=== PATIENT | male | born 1975 | race Caucasian/White ===

== ENCOUNTER 2016-09-28 05:37 | Observation (INO) | payer OTHER ==
[2016-09-28] MEDS ORDERED: Nitroglycerin 0.4 MG Tab.SL SL ONE ×2 (05:46→06:12)
[2016-09-28] MEDS ORDERED: Aspirin 81 MG Tab.Chew PO ONE (05:46)
[2016-09-28] MEDS ORDERED: Clopidogrel 75 MG Tab PO ONE (05:46)
[2016-09-28] MEDS ORDERED: Sodium Chloride 0.9% 10 ML Syringe FLUSH PRN (05:49)
--- NOTE | 2016-09-28 06:19 | EDM.PDOC ---
ED HISTORY OF PRESENT ILLNESS - General Chief Complaint: Chest Pain Stated Complaint: chest pain Time Seen by Provider: 09/28/16 06:07 Source of Information: Reports: Patient History Limitations: Reports: No limitations - History of Present Illness INITIAL COMMENTS - FREE TEXT/NARRATIVE: Patient drove self to ER after experiencing left lower rib margin pain and mild dizziness. Symptoms started around 5:30am. No heart disease history. Did have stress test around 6 years ago per patient after a different round of chest pain. Pain does not radiate. No SOB with pain, no change in pain with breathing or movement. No nausea or other GI complaints. Is lightheaded but head rotation does not trigger this or make it worse. Not diaphoretic. Denies fever. Had normal day yesterday except for random nose bleed from left nare. He says he sometimes has these during winter months. Had not had recent URI or cough. Family history unknown. Adopted as child. - Related Data Allergies/ADRs: Allergies Allergy/AdvReac Type Severity Reaction Status Date / Time No Known Allergies Allergy Verified 09/28/16 05:40 Home Meds: Home Meds . [No Known Home Meds] 09/28/16 [History] Past Medical History - Past Health History Medical/Surgical History: Denies Medical/Surgical History (denies any significant past medical history) Social & Family History - Family History Family Medical History: Unobtainable ED ROS GENERAL - Review of Systems Review Of Systems: ROS reveals no pertinent complaints other than HPI. ED EXAM, GENERAL - Physical Exam Exam: See Below Free Text/Narrative:: Unable to exacerbate/trigger pain with palpation of chest/abdomen Exam Limited By: No limitations General Appearance: alert, WD/WN, no apparent distress Eye Exam: bilateral eye: EOMI, PERRL Ears: normal external exam, normal canal, hearing grossly normal, normal TMs, other (impacted cerumen bilaterally, right greater than left) Nose: other (dried blood left nare. Otherwise unremarkable for swelling/ tenderness) Throat/Mouth: Normal inspection, Normal lips, Normal oropharynx, Normal voice, No airway compromise Head: atraumatic, normocephalic Neck: normal inspection, supple, non-tender, full range of motion. No: carotid bruit, lymphadenopathy (L), lymphadenopathy (R) Respiratory/Chest: no respiratory distress, lungs clear, normal breath sounds, no accessory muscle use, chest non-tender Cardiovascular: normal peripheral pulses, regular rate, rhythm, no edema, no JVD , no murmur Peripheral Pulses: 2+: radial (L), radial (R) GI/Abdominal: normal bowel sounds, soft, non tender, no organomegaly, no distention, no abnormal bruit (Male) Exam: Deferred Rectal (Males) Exam: Deferred Back Exam: normal inspection, full range of motion Extremities: normal inspection, normal range of motion, non-tender, no pedal edema, normal capillary refill Neurological: alert, CN II-XII intact, normal cognition, normal gait, normal reflexes, no motor/sensory deficits Psychiatric: normal affect, normal mood Skin Exam: Warm, Dry, Normal color, No rash EKG INTERPRETATION EKG Date: 09/28/16 Time: 05:37 Rhythm: other (Sinus Bradycardia) Rate (beats/min): 51 [place]: normal P-wave: present QRS: normal ST-T: normal QT: normal Comparison: NA - no prior EKG Course - Vital Signs Last Recorded V/S: Last Vital Signs Temp 36.8 C 09/28/16 05:37 Pulse 54 L 09/28/16 06:38 Resp 18 09/28/16 06:38 BP 117/75 09/28/16 06:38 Pulse Ox 100 09/28/16 06:38 - Orders/Labs/Meds Orders: Active Orders 24 hr Category Date Time Status Cardiac Monitoring [RC] . DIRECTED Care 09/28/16 05:49 Active EKG Documentation Completion [RC] ASDIRECTED Care 09/28/16 05:48 Active Oxygen Therapy, ED [RC] ASDIRECTED Care 09/28/16 05:40 Active Peripheral IV Care [RC] . DIRECTED Care 09/28/16 05:49 Active Chest 1V Frontal [CR] Stat Exams 09/28/16 05:48 Ordered GI Cocktail Med 09/28/16 06:50 Once 30 ml PO ONETIME ONE Sodium Chloride 0.9% [Saline Flush] Med 09/28/16 05:49 Active 10 ml FLUSH ASDIRECTED PRN Peripheral IV Insertion Adult [OM.PC] Routine Oth 09/28/16 05:49 Ordered EKG 12 Lead [EK] Routine Ther 09/28/16 05:48 Ordered Medication Orders Al Hydroxide/Mg Hydroxide (Gi Cocktail) 30 ml PO ONETIME ONE Stop: 09/28/16 06:51 Sodium Chloride (Saline Flush) 10 ml FLUSH ASDIRECTED PRN PRN Reason: Keep Vein Open Labs: Laboratory Tests 09/28/16 09/28/16 09/28/16 Range/Units 05:55 05:55 05:55 WBC 6.2 (4.0-10.2) K/uL RBC 4.78 (4.33-5.41) M/uL Hgb 14.5 (13.1-16.8) g/dL Hct 44.0 (39.0-49.0) % MCV 92.1 (84.0-98.0) fL MCH 30.3 (28.2-33.3) pg MCHC 33.0 (31.7-36.0) g/dL RDW 12.7 (11.2-14.1) % Plt Count 212 (150-350) K/uL Neut % (Auto) 56.8 (45.0-80.0) % Lymph % (Auto) 30.0 (10.0-50.0) % [place] % (Auto) 8.8 (2.0-14.0) % Eos % (Auto) 3.9 (0.0-5.0) % Baso % (Auto) 0.5 (0.0-2.0) % Neut # 3.51 (1.40-7.00) K/uL Lymph # 1.85 (0.50-3.50) K/uL [place] # 0.54 (0.00-1.00) K/uL Eos # 0.24 (0.00-0.50) K/uL Baso # 0.03 (0.00-0.20) K/uL PT 11.3 (9.8-11.7) SEC INR 1.1 APTT 27.5 (23.5-30.0) SEC D-Dimer, Quantitative (0-400) ng/mL Sodium 144 (136-145) mmol/L Potassium 4.3 (3.5-5.1) mmol/L Chloride 106 (98-107) mmol/L Carbon Dioxide 29.1 (21.0-32.0) mmol/L BUN 23 H (7-18) mg/dL Creatinine 1.13 (0.51-1.17) mg/dL Est Cr Clr Drug Dosing 100.74 mL/min Estimated GFR (MDRD) > 60 mL/min Glucose 117 H (74-106) mg/dL Calcium 8.1 L (8.5-10.1) mg/dL Total Bilirubin 0.5 (0.2-1.0) mg/dL AST 44 H (15-37) U/L ALT 29 (12-78) U/L Alkaline Phosphatase 67 (46-116) IU/L Creatine Kinase 545 H (26-308) U/L Creatine Kinase Index 1.1 (0.0-2.5) % CK-MB (CK-2) 6.00 H* (0.00-3.60) ng/mL Troponin I 0.003 (0.000-0.056) ng/mL Total Protein 7.0 (6.4-8.2) g/dL Albumin 3.7 (3.4-5.0) g/dL 09/28/16 Range/Units 05:55 WBC (4.0-10.2) K/uL RBC (4.33-5.41) M/uL Hgb (13.1-16.8) g/dL Hct (39.0-49.0) % MCV (84.0-98.0) fL MCH (28.2-33.3) pg MCHC (31.7-36.0) g/dL RDW (11.2-14.1) % Plt Count (150-350) K/uL Neut % (Auto) (45.0-80.0) % Lymph % (Auto) (10.0-50.0) % [place] % (Auto) (2.0-14.0) % Eos % (Auto) (0.0-5.0) % Baso % (Auto) (0.0-2.0) % Neut # (1.40-7.00) K/uL Lymph # (0.50-3.50) K/uL [place] # (0.00-1.00) K/uL Eos # (0.00-0.50) K/uL Baso # (0.00-0.20) K/uL PT (9.8-11.7) SEC INR APTT (23.5-30.0) SEC D-Dimer, Quantitative < 100 (0-400) ng/mL Sodium (136-145) mmol/L Potassium (3.5-5.1) mmol/L Chloride (98-107) mmol/L Carbon Dioxide (21.0-32.0) mmol/L BUN (7-18) mg/dL Creatinine (0.51-1.17) mg/dL Est Cr Clr Drug Dosing mL/min Estimated GFR (MDRD) mL/min Glucose (74-106) mg/dL Calcium (8.5-10.1) mg/dL Total Bilirubin (0.2-1.0) mg/dL AST (15-37) U/L ALT (12-78) U/L Alkaline Phosphatase (46-116) IU/L Creatine Kinase (26-308) U/L Creatine Kinase Index (0.0-2.5) % CK-MB (CK-2) (0.00-3.60) ng/mL Troponin I (0.000-0.056) ng/mL Total Protein (6.4-8.2) g/dL Albumin (3.4-5.0) g/dL Meds: Medications Generic Name Dose Route Start Last Admin Trade Name Freq PRN Reason Stop Dose Admin Al Hydroxide/Mg Hydroxide 30 ml 09/28/16 06:50 Gi Cocktail PO 09/28/16 06:51 ONETIME ONE Sodium Chloride 10 ml 09/28/16 05:49 Saline Flush FLUSH ASDIRECTED PRN Keep Vein Open Discontinued Medications Generic Name Dose Route Start Last Admin Trade Name Freq PRN Reason Stop Dose Admin Aspirin 324 mg 09/28/16 05:46 09/28/16 05:50 Aspirin PO 09/28/16 05:47 324 mg ONETIME ONE Administration Clopidogrel Bisulfate 300 mg 09/28/16 05:46 09/28/16 05:50 Plavix PO 09/28/16 05:47 300 mg ONETIME ONE Administration Nitroglycerin 0.4 mg 09/28/16 05:46 09/28/16 05:54 Nitrostat SL 09/28/16 05:47 0.4 mg ONETIME ONE Administration Nitroglycerin 0.4 mg 09/28/16 06:12 09/28/16 06:13 Nitrostat SL 09/28/16 06:13 0.4 mg ONETIME ONE Administration - Radiology Interpretation Free Text/Narrative:: Chest xray unremarkable, unchanged overall from last CXR - Re-Assessments/Exams Free Text/Narrative Re-Assessment/Exam: 09/28/16 06:46 Patient's pain improved from 7 to a 4. This was while he was in ER and receiving intermittent NTG. Uncertain if improvement due to the NTG. Troponin negative. No acute changes noted on EKG. CK and CKMB elevated but index normal. 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 Plan at this time is to admit for observation with redraw of Troponin/labs in 6 hours. GIven location of pain and presentation appears less likely to be cardiac in nature but cannot fully rule out possibility. Differential includes GI, as well as early enteritis symptoms. Departure - Departure Time of Disposition: 06:48 Disposition: Refer to Observation Condition: good Clinical Impression: Chest pain of uncertain etiology Referrals: Monique Bray PA [Primary Care Provider] - Forms: ED Department Discharge - Problem List & Annotations (1) Chest pain of uncertain etiology SNOMED Code(s): 11708625 Code(s): R07.89 - OTHER CHEST PAIN Status: Acute Priority: High Current Visit: Yes Onset Date: 09/28/16 - Problem List Review Problem List Initiated/Reviewed/Updated: Yes - My Orders Last 24 Hours: My Active Orders 09/28/16 05:40 Oxygen Therapy, ED [RC] ASDIRECTED 09/28/16 05:48 EKG Documentation Completion [RC] ASDIRECTED Chest 1V Frontal [CR] Stat EKG 12 Lead [EK] Routine 09/28/16 05:49 Cardiac Monitoring [RC] . DIRECTED Peripheral IV Care [RC] . DIRECTED Sodium Chloride 0.9% [Saline Flush] 10 ml FLUSH ASDIRECTED PRN Peripheral IV Insertion Adult [OM.PC] Routine 09/28/16 06:50 GI Cocktail 30 ml PO ONETIME ONE - Assessment/Plan Admission H&P: Please use this note as an admission H&P Last 24 Hours: My Active Orders 09/28/16 05:40 Oxygen Therapy, ED [RC] ASDIRECTED 09/28/16 05:48 EKG Documentation Completion [RC] ASDIRECTED Chest 1V Frontal [CR] Stat EKG 12 Lead [EK] Routine 09/28/16 05:49 Cardiac Monitoring [RC] . DIRECTED Peripheral IV Care [RC] . DIRECTED Sodium Chloride 0.9% [Saline Flush] 10 ml FLUSH ASDIRECTED PRN Peripheral IV Insertion Adult [OM.PC] Routine 09/28/16 06:50 GI Cocktail 30 ml PO ONETIME ONE Assessment:: Left lower anterior chest pain. Uncertain cause. Only other complaint is lightheaded sensation. Negative initial cardiac workup in ER. Patient does have lower heart rate in 50s. Do not feel at this time that discomfort is attributable to this rate. Patient does not know what his usual vital signs are. Can have staff call [facility] to check on what records are available pertaining to prior vital sign trends. 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 Serial Troponin checks. If these remain negative, patient should be discharged within 12-24 hours. GI cocktail also ordered. Patient discomfort down to a 2 at time of admission.
[2016-09-28 06:36] LABS: CHLORIDE,CL 106 mmol/L (98-107); SODIUM,NA 144 mmol/L (136-145)
[2016-09-28] MEDS ORDERED: GI Cocktail Oral Solution 30 ML PO ONE (06:50)
[2016-09-28] MEDS ORDERED: Nitroglycerin 0.4 MG Tab.SL SL PRN (07:14)
[2016-09-28 16:02] VITALS: BP 125/81
--- NOTE | 2016-09-28 17:13 | PCM.DCSUM1 ---
Discharge Summary - Hospital Course HPI Initial Comments: See emergency room note/admission H&P Brief History: See emergency room note/admission H&P - Discharge Data Discharge Date: 09/28/16 Discharge Disposition: Home, Self-Care 01 Condition: Good - Discharge Diagnosis/Problem(s) (1) Chest pain of uncertain etiology SNOMED Code(s): 84842269 ICD Code: R07.89 - OTHER CHEST PAIN Status: Acute Priority: High Current Visit: Yes Onset Date: 09/28/16 Problem Details: Patient insisted on admission and also at this time to be discharged today. 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 Various therapeutic options were discussed with the patient, who agrees to recommended Cardiolite stress test with his regular provider, Dunia Beavers [place] [facility] as per discharge instructions. Work excuse provided with patient to maintain a 50% maximum exercise restriction until he is released by his regular provider. Despite evidence of bradycardia no direct evidence of inferolateral ischemia by serial EKGs, including immediately prior to discharge. Extensive precautions were given to the patient, who is in agreement with the treatment plan. Cardiac risk factors include male sex and hyperlipidemia with complete lipid panel still pending secondary to shortage of reagents. He is adopted and is not aware of his family history. Chest pain protocol was followed on admission with no beta blockers given. No further aspirin, etc. for now. Note negative H. pylori this afternoon. (2) Elevated CPK SNOMED Code(s): 097978693 ICD Code: R74.8 - ABNORMAL LEVELS OF OTHER SERUM ENZYMES Status: Acute Priority: Medium Current Visit: Yes Onset Date: 09/28/16 Problem Details: As above. Observe for now (3) Bradycardia SNOMED Code(s): 74802716 ICD Code: R00.1 - BRADYCARDIA, UNSPECIFIED Status: Acute Priority: Medium Current Visit: Yes Problem Details: As above. Observe for now (4) Hyperlipidemia SNOMED Code(s): 22356329 ICD Code: E78.5 - HYPERLIPIDEMIA, UNSPECIFIED Status: Chronic Priority: Medium Current Visit: Yes Problem Details: As above. Observe for now. Consider therapy with caution in light of his baseline CPK elevation Qualifiers: Hyperlipidemia type: unspecified Qualified Code(s): E78.5 - Hyperlipidemia , unspecified - Patient Summary/Data Operative Procedure(s) Performed: None Complications: None Consults: None Labs Pending at D/C: Lipid panel Recommended Follow-up Testing/Procedures: As per discharge instructions Planned Operative Procedure(s) after DC: None Hospital Course: Patient was admitted to observation status for nonspecific left chest pain with negative workup for acute TX as above. No recurrence of his chest pain during hospital course with further workup as per above. Patient did tolerate diet prior to discharge - Patient Instructions Diet: Heart Healthy Diet Activity: No Strenuous Activities (50% maximum exercise restriction until your cardiac status has been determined and you are released by your regular provider ) Driving: May Drive Today Showering/Bathing: May Shower Notify Provider of: Increased Pain, Nausea and/or Vomiting Other/Special Instructions: 1. Followup in this facility NA[facility] for Cardiolite stress test with Dunia Brown MD at [facility] in [place], with this facility to call you back later or specific instructions and time. 2. Otherwise followup with your regular provider within the next 10-14 days for reevaluation and recommended repeat CBC, comprehensive metabolic panel, CK, CK-MB, CK index, and troponin I. 3. Discuss final results of today's lipid panel at the above followup - Discharge Plan Home Medications: Home Meds . [No Known Home Meds] 09/28/16 [History] Patient Handouts: Nonspecific Chest Pain, [id number], Fat and Cholesterol Restricted Diet, [id number], CK-MB Forms: ED Department Discharge, Return to Work/School Form Referrals: Monique Bray PA [Primary Care Provider] - - Discharge Summary/Plan Comment DC Time >30 min.: Yes ( Coordination of care) Discharge Summary/Plan Comment: As above - General Info Date of Service: 09/28/16 Admission Dx/Problem (Free Text: Chest pain Functional Status: Reports: pain controlled, tolerating diet, ambulating, urinating. Denies: new symptoms, incentive spirometry Numeric/FACES Score: 0 - Review of Systems General: Reports: no symptoms. Denies: fever, weakness, fatigue, chills, night sweats, appetite (Appetite good) HEENT: Reports: no symptoms. Denies: ear pain, eye pain, headaches, post nasal drip, sore throat, rhinitis, visual changes Pulmonary: Reports: no symptoms. Denies: shortness of breath, pleuritic chest pain, cough, wheezing Cardiovascular: Reports: no symptoms. Denies: chest pain, palpitations, dyspnea on exertion, orthopnea, PND, edema, lightheadedness Gastrointestinal: Reports: No symptoms. Denies: Abdominal pain, Constipation, Decreased appetite, Diarrhea, Difficulty swallowing, Flatus, Hematochezia, Melena, Nausea, Vomiting Genitourinary: Reports: no symptoms. Denies: dysuria, frequency, burning, pain , urgency, incontinence, hematuria, flank pain Musculoskeletal: Reports: no symptoms. Denies: neck pain, shoulder pain, arm pain, back pain, leg pain Skin: Reports: no symptoms. Denies: diaphoresis, bruising Neurological: Reports: no symptoms. Denies: confusion, dizziness, headache, numbness, paresthesia, tingling, weakness Psychiatric: Reports: no symptoms. Denies: confusion, depression, anxiety - Patient Data Vitals - Most Recent: Last Vital Signs Temp 36.8 C 09/28/16 16:00 Pulse 55 L 09/28/16 16:00 Resp 16 09/28/16 16:00 BP 125/81 09/28/16 16:00 Pulse Ox 100 09/28/16 16:00 Weight - Most Recent: 95.164 kg I&O - Last 24 hours: Intake & Output 09/28/16 09/28/16 09/28/16 06:59 14:59 22:59 Intake Total 120 Balance 120 Imaging Impressions - Last 24 hrs: air sampling and monitoring shows occasional mild sinus arrhythmia and bradycardia with heart rate in the 50s and 60s with no ectopy or arrhythmia Chest x-ray, portable, report from earlier today shows some possible hyperinflation with no cardiomegaly, CHF, pulmonary infiltrates, etc. Lab Results - Last 24 hrs: Laboratory Results - last 24 hr 09/28/16 09/28/16 Range/Units 10:45 16:40 Creatine Kinase 427 H 376 H (26-308) U/L Creatine Kinase Index 1.1 0.9 (0.0-2.5) % CK-MB (CK-2) 4.50 H* 3.20 (0.00-3.60) ng/mL Troponin I 0.000 0.000 (0.000-0.056) ng/mL [id number] Pept 22 (0-125) pg/mL Cholesterol 179 (100-200) mg/dL HDL Cholesterol 41 (40-60) mg/dL Vital Signs - 24 hr 09/28/16 09/28/16 09/28/16 05:37 05:50 05:54 Temperature [ 36.8 C Oral] Temperature [ Temporal] Pulse, 55 L 67 Peripheral [ Right Brachial] Respiratory 18 17 Rate Blood Pressure 144/87 H Blood Pressure 134/88 144/87 H [Right Upper Arm] O2 Sat by Pulse 99 100 Oximetry 09/28/16 09/28/16 09/28/16 06:05 06:13 06:20 Temperature [ Oral] Temperature [ Temporal] Pulse, 67 65 Peripheral [ Right Brachial] Respiratory 19 17 Rate Blood Pressure 124/66 Blood Pressure 124/66 119/75 [Right Upper Arm] O2 Sat by Pulse 100 100 Oximetry 09/28/16 09/28/16 09/28/16 06:38 07:08 12:00 Temperature [ 36.6 C Oral] Temperature [ 37.3 C Temporal] Pulse, 54 L 50 L 61 Peripheral [ Right Brachial] Respiratory 18 18 16 Rate Blood Pressure Blood Pressure 117/75 123/79 121/82 [Right Upper Arm] O2 Sat by Pulse 100 99 100 Oximetry 09/28/16 16:00 Temperature [ 36.8 C Oral] Temperature [ Temporal] Pulse, 55 L Peripheral [ Right Brachial] Respiratory 16 Rate Blood Pressure Blood Pressure 125/81 [Right Upper Arm] O2 Sat by Pulse 100 Oximetry LUI Results - Last 24 hrs: None Med Orders - Current: Current Medications Sodium Chloride (Saline Flush) 10 ml FLUSH ASDIRECTED PRN PRN Reason: Keep Vein Open Discontinued Medications Al Hydroxide/Mg Hydroxide (Gi Cocktail) 30 ml PO ONETIME ONE Stop: 09/28/16 06:51 Last Admin: 09/28/16 07:00 Dose: 30 ml Aspirin (Aspirin) 324 mg PO ONETIME ONE Stop: 09/28/16 05:47 Last Admin: 09/28/16 05:50 Dose: 324 mg Clopidogrel Bisulfate (Plavix) 300 mg PO ONETIME ONE Stop: 09/28/16 05:47 Last Admin: 09/28/16 05:50 Dose: 300 mg Nitroglycerin (Nitrostat) 0.4 mg SL ONETIME ONE Stop: 09/28/16 05:47 Last Admin: 09/28/16 05:54 Dose: 0.4 mg Nitroglycerin (Nitrostat) 0.4 mg SL ONETIME ONE Stop: 09/28/16 06:13 Last Admin: 09/28/16 06:13 Dose: 0.4 mg Nitroglycerin (Nitrostat) 0.4 mg SL Q5M PRN PRN Reason: Chest Pain Stop: 09/28/16 07:25 - Exam Quality Assessment: Reports: supplemental oxygen, DVT prophylaxis. Denies: urine catheter, skin breakdown, restraints General: Reports: alert, oriented, cooperative, no acute distress HEENT: Reports: Pupils equal, Pupils reactive, EOMI, Mucous membr. moist/pink Neck: Reports: supple, trachea midline, no JVD, no thyromegaly. Denies: lymphadenopathy Lungs: Reports: Clear to auscultation, Normal respiratory effort. Denies: Rub Cardiovascular: Reports: regular rhythm, no murmurs, bradycardia (With occasional sinus arrhythmia ). Denies: gallops, rubs Abdomen: Reports: bowel sounds present, soft, no tenderness, no distension. Denies: guarding, CVA tenderness (Male) Exam: Deferred Rectal (Males) Exam: Deferred Back Exam: Reports: normal inspection, full range of motion. Denies: CVA tenderness (L), CVA tenderness (R) Extremities: Reports: no edema, normal pulses (2/4 peripheral pulses), no tenderness/swelling, no calf tenderness Skin: Reports: warm, dry, intact Neurological: Reports: no new focal deficit, other (No clinical orthostasis) Psy/Mental Status: Reports: alert, normal affect, normal mood. Denies: agitated EKG INTERPRETATION EKG Date: 09/28/16 Time: 16:37 Rhythm: other (Sinus bradycardia with mild sinus arrhythmia) Rate (beats/min): 54 [place]: normal (Left cardiac axis) P-wave: enlarged (Mild diffuse biphasic P waves with borderline pulmonary hypertension by EKG) QRS: normal (QRS interval 0.09 seconds representing repolarization changes with T-wave inversion in lead V1) ST-T: normal QT: normal MT/PQ Interval: 0.14 seconds Comparison: no change (From EKG earlier this morning) EKG Interpretation Comments: 1. No acute ischemic changes 2. Sinus bradycardia and mild sinus arrhythmia 3. Repolarization changes 4. Possible pulmonary hypertension by EKG *Q Meaningful Use (DIS) - VTE *Q VTE Criteria *Q: - Stroke *Q Stroke Criteria *Q: - AMI *Q AMI Criteria *Q:
== END 2016-09-28 17:55 | disposition home or self-care (01) ==
LOC: LL.ED 05:37 → LL.MS 07:07
PROVIDERS: ADMIT Emergency Medicine; ATTEND Family Medicine
DX: R07.89 Other chest pain (principal); R74.8 Abnormal levels of other serum enzymes; R00.1 Bradycardia, unspecified; E78.5 Hyperlipidemia, unspecified
CPT/HCPCS: 36415; 71010; 80053; 80061; 82550; 82553; 83880; 84484; 85025; 85379; 85610; 85730; 86318; 93005; A9270; G0378; 36000; 99285

== ENCOUNTER 2021-02-16 20:19 | Emergency (ER) | payer BC ==
[2021-02-16] MEDS: Aspirin 81 MG Tab.Chew PO ONE (20:25)
[2021-02-16] MEDS ORDERED: Nitroglycerin 0.4 MG Tab.SL SL ONE (20:30)
[2021-02-16] MEDS: Aspirin 81 MG Tab.Chew ONE (20:33)
--- NOTE | 2021-02-16 20:35 | PCM.EKG ---
#1 Interpretation EKG Date: 02/16/21 Time: 20:29 Rhythm: NSR Rate (Beats/Min): 71 [place]: Normal P-Wave: Present QRS: Normal ST-T: Normal QT: Normal Comparison: NA - No Prior EKG
--- NOTE | 2021-02-16 20:37 | EDM.PDOC ---
ED [facility] GENERAL MEDICAL PROBLEM - General Chief Complaint: Chest Pain Stated Complaint: CP Time Seen by Provider: 02/16/21 20:19 Source of Information: Reports: Patient History Limitations: Reports: No Limitations - History of Present Illness INITIAL COMMENTS - FREE TEXT/NARRATIVE: Patient comes emergency department today from home with complaints of chest pain. This patient relates since about 1 PM this afternoon he has had a constant heaviness pressure over the left anterior chest. It does get worse at times that is more sharp shooting and stabbing that makes him short of breath. His pain also does radiate down his left arm. It does not radiate into his jaw neck or back. He has no palpitations weakness dizziness lightheadedness. He cannot make the pain worse or better. He has had no fever or chills. No abdominal pain nausea or vomiting. No recent falls trauma to his chest back or other areas. No hematuria dysuria urinary frequency. No black or tarry stools. He denies any other past medical history other than migraines. - Related Data Allergies Allergy/AdvReac Type Severity Reaction Status Date / Time No Known Allergies Allergy Verified 02/20/21 17:30 Home Meds: Home Meds . [No Known Home Meds] 09/28/16 [History] Past Medical History - Past Health History Medical/Surgical History: Denies Medical/Surgical History Social & Family History - Family History Family Medical History: Unobtainable ED ROS GENERAL - Review of Systems Review Of Systems: Comprehensive ROS is negative, except as noted in HPI. ED EXAM, GENERAL - Physical Exam Exam: See Below Exam Limited By: No Limitations General Appearance: Alert, WD/WN, No Apparent Distress Ears: Normal External Exam Nose: Normal Inspection Throat/Mouth: Normal Inspection Head: Atraumatic, Normocephalic Neck: Normal Inspection, Supple, Non-Tender, Full Range of Motion Respiratory/Chest: No Respiratory Distress, Lungs Clear, Normal Breath Sounds, No Accessory Muscle Use, Chest Non-Tender Cardiovascular: Normal Peripheral Pulses, Regular Rate, Rhythm, No Murmur Peripheral Pulses: 2+: Radial (L), Radial (R) GI/Abdominal: Normal Bowel Sounds, Soft, Non-Tender, No Organomegaly, No Distention (Male) Exam: Deferred Rectal (Males) Exam: Deferred Back Exam: Normal Inspection, Full Range of Motion Extremities: Normal Inspection, Normal Range of Motion, Non-Tender, No Pedal Edema, Normal Capillary Refill Neurological: Alert, Oriented, Normal Cognition, No Motor/Sensory Deficits Psychiatric: Normal Affect, Normal Mood Skin Exam: Intact, Normal Color, Cool, Diaphoretic Course - Vital Signs Last Recorded V/S: Last Vital Signs Temp 96.9 F 02/16/21 20:21 Pulse 70 02/16/21 21:35 Resp 23 H 02/16/21 21:35 BP 124/70 02/16/21 21:35 Pulse Ox 97 02/16/21 21:35 - Orders/Labs/Meds Labs: Laboratory Tests 02/16/21 02/16/21 02/16/21 Range/Units 20:29 20:29 20:29 WBC 7.8 (4.0-10.2) K/uL RBC 4.69 (4.33-5.41) M/uL Hgb 14.4 (13.1-16.8) g/dL Hct 43.2 (39.0-49.0) % MCV 92.1 (84.0-98.0) fL MCH 30.7 (28.2-33.3) pg MCHC 33.3 (31.7-36.0) g/dL RDW 12.6 (11.2-14.1) % Plt Count 251 (150-350) K/uL Neut % (Auto) 65.3 (45.0-80.0) % Lymph % (Auto) 20.9 (10.0-50.0) % Brooks % (Auto) 9.7 (2.0-14.0) % Eos % (Auto) 3.7 (0.0-5.0) % Baso % (Auto) 0.4 (0.0-2.0) % Neut # (Auto) 5.06 (1.40-7.00) K/uL Lymph # (Auto) 1.62 (0.50-3.50) K/uL Brooks # (Auto) 0.75 (0.00-1.00) K/uL Eos # (Auto) 0.29 (0.00-0.50) K/uL Baso # (Auto) 0.03 (0.00-0.20) K/uL PT 9.6 (9.5-12.0) SEC INR 1.0 APTT 25.1 (24.5-32.8) SEC D-Dimer, Quantitative (0-400) ng/mL Sodium 145 (136-145) mmol/L Potassium 4.3 (3.5-5.1) mmol/L Chloride 107 (98-107) mmol/L Carbon Dioxide 25.9 (21.0-32.0) mmol/L BUN 21 H (7-18) mg/dL Creatinine 1.03 (0.51-1.17) mg/dL Est Cr Clr Drug Dosing 108.85 mL/min Estimated GFR (MDRD) > 60 mL/min Glucose 137 H (70-99) mg/dL Calcium 8.1 L (8.5-10.1) mg/dL Total Bilirubin 0.5 (0.2-1.0) mg/dL AST 30 (15-37) U/L ALT 37 (12-78) U/L Alkaline Phosphatase 85 (46-116) IU/L Troponin I 0.000 (0.000-0.056) ng/mL Total Protein 7.3 (6.4-8.2) g/dL Albumin 3.8 (3.4-5.0) g/dL 02/16/21 Range/Units 20:29 WBC (4.0-10.2) K/uL RBC (4.33-5.41) M/uL Hgb (13.1-16.8) g/dL Hct (39.0-49.0) % MCV (84.0-98.0) fL MCH (28.2-33.3) pg MCHC (31.7-36.0) g/dL RDW (11.2-14.1) % Plt Count (150-350) K/uL Neut % (Auto) (45.0-80.0) % Lymph % (Auto) (10.0-50.0) % Brooks % (Auto) (2.0-14.0) % Eos % (Auto) (0.0-5.0) % Baso % (Auto) (0.0-2.0) % Neut # (Auto) (1.40-7.00) K/uL Lymph # (Auto) (0.50-3.50) K/uL Brooks # (Auto) (0.00-1.00) K/uL Eos # (Auto) (0.00-0.50) K/uL Baso # (Auto) (0.00-0.20) K/uL PT (9.5-12.0) SEC INR APTT (24.5-32.8) SEC D-Dimer, Quantitative < 100 (0-400) ng/mL Sodium (136-145) mmol/L Potassium (3.5-5.1) mmol/L Chloride (98-107) mmol/L Carbon Dioxide (21.0-32.0) mmol/L BUN (7-18) mg/dL Creatinine (0.51-1.17) mg/dL Est Cr Clr Drug Dosing mL/min Estimated GFR (MDRD) mL/min Glucose (70-99) mg/dL Calcium (8.5-10.1) mg/dL Total Bilirubin (0.2-1.0) mg/dL AST (15-37) U/L ALT (12-78) U/L Alkaline Phosphatase (46-116) IU/L Troponin I (0.000-0.056) ng/mL Total Protein (6.4-8.2) g/dL Albumin (3.4-5.0) g/dL Meds: Medications Discontinued Medications Generic Name Dose Route Start Last Admin Trade Name Savanah PRN Reason Stop Dose Admin Al Hydroxide/Mg Hydroxide 30 ml 02/16/21 20:33 02/16/21 20:39 Gi Cocktail Oral Solution 30 Ml PO 02/16/21 20:34 30 ml ONETIME ONE Administration Aspirin Confirm 02/16/21 20:24 02/16/21 20:33 Aspirin 81 Mg Tab.Chew Administered 02/16/21 20:25 Not Given Dose 324 mg .ROUTE .STK-MED ONE Aspirin 324 mg 02/16/21 20:24 02/16/21 20:25 Aspirin 81 Mg Tab.Chew PO 02/16/21 20:25 324 mg ONETIME ONE Administration Ketorolac Tromethamine 30 mg 02/16/21 21:45 02/16/21 21:50 Ketorolac 30 Mg/Ml Sdv IVPUSH 02/16/21 21:46 30 mg ONETIME ONE Administration Nitroglycerin 0.4 mg 02/16/21 20:30 Nitroglycerin 0.4 Mg Tab.Sl SL 02/16/21 20:31 ONETIME ONE Sodium Chloride 10 ml 02/16/21 20:30 02/16/21 21:50 Sodium Chloride 0.9% 10 Ml Syringe FLUSH 10 ml ASDIRECTED PRN Administration Keep Vein Open - Radiology Interpretation Free Text/Narrative:: CXR per radiology no acute cardiopulmonary findings. - Re-Assessments/Exams Free Text/Narrative Re-Assessment/Exam: 02/16/21 20:37 IV established. Labs were drawn. 324 oral aspirin chewable. EKG without St elevation or depression when reviewed extemporaneously by myself. Gi Cocktail. 02/16/21 20:52 Patient CBC is unremarkable. Coagulation studies are normal. CMP with a glucose of 137 calcium 8.1 otherwise normal. Troponin I 0.000 his pain has been going on since 1 PM. D-Dimer negative. Im unsure what is causing his pain at this time but it is not cardiac related at this time. We will see if Nsaids help if not improving recheck with PCP. He is comfortable with this plan and his questions answered. Departure - Departure Time of Disposition: 21:38 Disposition: Home, Self-Care 01 Clinical Impression: Chest pain of uncertain etiology Instructions: Nonspecific Chest Pain, Adult, [id number] Referrals: Monique Bray PA [Primary Care Provider] - Forms: ED Department Discharge Additional Instructions: Tylenol and or ibuprofen as needed for pain. Return to the ED if new or worsening symptoms. Recheck in the clinic this week if continued symptoms and consider stress test. Sepsis Event Note (ED) - Evaluation Sepsis Screening Result: No Definite Risk
[2021-02-16] MEDS: GI Cocktail Oral Solution 30 ML PO ONE (20:39)
[2021-02-16 20:44] LABS: PTT,PARTIAL THROMBOPLSTIN TIME 25.1 SEC (24.5-32.8)
[2021-02-16 20:48] LABS: CHLORIDE,CL 107 mmol/L (98-107); SODIUM,NA 145 mmol/L (136-145)
[2021-02-16] MEDS: Ketorolac 30 MG/ML SDV IVPUSH ONE (21:50)
[2021-02-16] MEDS: Sodium Chloride 0.9% 10 ML Syringe FLUSH PRN (21:50)
[2021-02-16 22:30] VITALS: BP 124/70; PULSE 70
== END 2021-02-16 22:02 | disposition home or self-care (01) ==
LOC: LL.ED 20:19
DX: R07.89 Other chest pain (principal)
CPT/HCPCS: 36415; 71046; 80053; 84484; 85025; 85379; 85610; 85730; 93005; 96374; 99284; 99285-25; A9270-GY; J1885

== ENCOUNTER 2021-02-18 11:43 | Emergency (ER) | payer BC ==
--- NOTE | 2021-02-18 11:56 | EDM.PDOC ---
ED [facility] GENERAL MEDICAL PROBLEM - General Chief Complaint: Cardiovascular Problem Stated Complaint: chest pain Time Seen by Provider: 02/18/21 11:45 Source of Information: Reports: Patient History Limitations: Reports: No Limitations - History of Present Illness INITIAL COMMENTS - FREE TEXT/NARRATIVE: Patient was sent here after being seen by his primary care provider and she was not able to obtain EKG or lab work nor reproduce the pain. Patient was seen here Wednesday night proximally about 8 PM diagnosed with nonspecific chest pain. Discharged home after a normal work-up. Was told to follow-up with her primary care provider which she did today. Patient states he has been having ongoing constant dull to sharp pressure type pain in the left sternal wall radiating to the left shoulder since Wednesday at 1 PM. After he states he just could not get the chest pain to go away he presented here to the ER 8:00 that night for evaluation. Patient states he has had the chest pain 22/02 since being discharged but has been able to sleep with it he states the pain does not go away nor does it really change it does not get worse with any type of movement or deep breath or cough. He does not know his past family history secondary to being adopted. He does not smoke does not drink does not take any medications nor does he have any past medical history of his self He denies any excessive activity He states today that he feels just like he did when he was worked up here in the ER no changes. He denies any shortness of breath nausea vomiting diaphoresis fever chills cough Duration: Day(s): Location: Reports: Chest Severity: Moderate Improves with: Reports: None Worsens with: Reports: None Associated Symptoms: Reports: No Other Symptoms Left Lower Chest Pain Score (Numeric/FACES): 7 - Related Data Allergies Allergy/AdvReac Type Severity Reaction Status Date / Time No Known Allergies Allergy Verified 02/18/21 11:47 Home Meds: Home Meds . [No Known Home Meds] 09/28/16 [History] Past Medical History - Past Health History Medical/Surgical History: Denies Medical/Surgical History HEENT History: Reports: Impaired Vision Social & Family History - Family History Family Medical History: Unobtainable - Caffeine Use Caffeine Use: Reports: Soda, Tea ED ROS GENERAL - Review of Systems Review Of Systems: See Below Constitutional: Reports: No Symptoms HEENT: Reports: No Symptoms Respiratory: Reports: No Symptoms. Denies: Shortness of Breath, Wheezing, Pleuritic Chest Pain Cardiovascular: Reports: Chest Pain. Denies: Blood Pressure Problem, C laudication, Dyspnea on Exertion, Edema, Lightheadedness, Orthopnea, Palpitations, PND Endocrine: Reports: No Symptoms GI/Abdominal: Reports: No Symptoms : Reports: No Symptoms Musculoskeletal: Reports: No Symptoms Skin: Reports: No Symptoms Neurological: Reports: No Symptoms Psychiatric: Reports: No Symptoms Hematologic/Lymphatic: Reports: No Symptoms Immunologic: Reports: No Symptoms ED EXAM, GENERAL - Physical Exam Exam: See Below Exam Limited By: No Limitations General Appearance: Alert, WD/WN, No Apparent Distress Eye Exam: Bilateral Eye: Normal Inspection, PERRL Nose: Normal Inspection, Normal Mucosa, No Blood Throat/Mouth: Normal Inspection, Normal Lips, Normal Teeth, Normal Gums, Normal Oropharynx, Normal Voice, No Airway Compromise Head: Atraumatic, Normocephalic Neck: Normal Inspection, Supple, Non-Tender, Full Range of Motion Respiratory/Chest: No Respiratory Distress, Lungs Clear, Normal Breath Sounds, No Accessory Muscle Use, Chest Non-Tender. No: Decreased Breath Sounds, Crackles, Rales, Rhonchi, Wheezing, Pleural Rub, Accessory Muscle Use Cardiovascular: Normal Peripheral Pulses, Regular Rate, Rhythm, No Edema, No Gallop, No JVD, No Murmur, No Rub GI/Abdominal: Normal Bowel Sounds, Soft, Non-Tender, No Organomegaly, No Di stention, No Abnormal Bruit, No Mass Back Exam: Normal Inspection, Full Range of Motion. No: CVA Tenderness (L), CVA Tenderness (R) Extremities: Normal Inspection, Normal Range of Motion, Non-Tender, No Pedal Edema Neurological: Alert, Oriented, CN II-XII Intact, Normal Cognition, Normal Gait Psychiatric: Normal Affect, Normal Mood Skin Exam: Warm, Dry, Intact, Normal Color, No Rash #1 Interpretation Rhythm: NSR [place]: Normal P-Wave: Present QRS: Normal ST-T: Normal QT: Normal Course - Vital Signs Text/Narrative:: Spoke with primary care provider Keyanna states she did not have ability to work the patient up did not know what was going on with him centimeter for further evaluation. Labs checked today CBC BMP sed rate troponin EKG and a chest x-ray Reviewed lab work from Wednesday's visit all within normal limits vital signs today all within normal limits EKG normal sinus rhythm no acute findings noted no apparent changes from Wednesday's visit Lab work within normal limits troponin is 0 and change from last visit on Wednesday chest x-ray no acute findings [place] [facility] call called for medical billing manager to get outpatient consult. 1230 Spoke with medical billing manager Dr. RANGEL will accept the patient for further work-up through the ER to include CTA possible nuke stress test Dr. BROWN in the emergency room will accept transfer 1330 - Orders/Labs/Meds Orders: Active Orders 24 hr Category Date Time Status EKG Documentation Completion [RC] ASDIRECTED Care 02/18/21 11:53 Active Chest 2V [CR] Stat Exams 02/18/21 11:48 Taken Labs: Laboratory Tests 02/18/21 02/18/21 Range/Units 12:00 12:00 WBC 7.1 (4.0-10.2) K/uL RBC 4.60 (4.33-5.41) M/uL Hgb 14.0 (13.1-16.8) g/dL Hct 43.3 (39.0-49.0) % MCV 94.1 (84.0-98.0) fL MCH 30.4 (28.2-33.3) pg MCHC 32.3 (31.7-36.0) g/dL RDW 12.4 (11.2-14.1) % Plt Count 219 (150-350) K/uL Neut % (Auto) 74.9 (45.0-80.0) % Lymph % (Auto) 13.2 (10.0-50.0) % [place] % (Auto) 8.2 (2.0-14.0) % Eos % (Auto) 3.3 (0.0-5.0) % Baso % (Auto) 0.4 (0.0-2.0) % Neut # (Auto) 5.29 (1.40-7.00) K/uL Lymph # (Auto) 0.93 (0.50-3.50) K/uL [place] # (Auto) 0.58 (0.00-1.00) K/uL Eos # (Auto) 0.23 (0.00-0.50) K/uL Baso # (Auto) 0.03 (0.00-0.20) K/uL ESR 10 (0-15) mm/hr Sodium 144 (136-145) mmol/L Potassium 4.9 (3.5-5.1) mmol/L Chloride 108 H (98-107) mmol/L Carbon Dioxide 31.1 (21.0-32.0) mmol/L Anion Gap 9.8 (7-15) meq/L BUN 12 (7-18) mg/dL Creatinine 0.96 (0.51-1.17) mg/dL Est Cr Clr Drug Dosing 113.69 mL/min Estimated GFR (MDRD) > 60 mL/min Glucose 99 (70-99) mg/dL Calcium 8.9 (8.5-10.1) mg/dL Troponin I 0.000 (0.000-0.056) ng/mL Departure - Departure Time of Disposition: 13:20 Disposition: Home, Self-Care 01 Condition: Good Clinical Impression: Chest pain Instructions: Nonspecific Chest Pain, Adult, [id number] Forms: ED Department Discharge Additional Instructions: Follow-up with your primary care provider in the next 24 to 48 hours Return here to the emergency room if anything changes or gets worse - Problem List & Annotations (1) Chest pain of uncertain etiology SNOMED Code(s): 40891293 Code(s): R07.89 - OTHER CHEST PAIN Status: Acute Priority: High Current Visit: No Onset Date: 09/28/16 Annotation/Comment:: Patient insisted on admission and also at this time to be discharged today. 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 Various therapeutic options were discussed with the patient, who agrees to recommended Cardiolite stress test with his regular provider, [place] [facility] [place] [facility] as per discharge instructions. Work excuse provided with patient to maintain a 50% maximum exercise restriction until he is released by his regular provider. Despite evidence of bradycardia no direct evidence of inferolateral ischemia by serial EKGs, including immediately prior to discharge. Extensive precautions were given to the patient, who is in agreement with the treatment plan. Cardiac risk factors include male sex and hyperlipidemia with complete lipid panel still pending secondary to shortage of reagents. He is adopted and is not aware of his family history. Chest pain protocol was followed on admission with no beta blockers given. No further aspirin, etc. for now. Note negative H. pylori this afternoon. - My Orders Last 24 Hours: My Active Orders 02/18/21 11:48 Chest 2V [CR] Stat 02/18/21 11:53 EKG Documentation Completion [RC] ASDIRECTED - Assessment/Plan Last 24 Hours: My Active Orders 02/18/21 11:48 Chest 2V [CR] Stat 02/18/21 11:53 EKG Documentation Completion [RC] ASDIRECTED
[2021-02-18 12:33] LABS: ANION GAP 9.8 meq/L (7-15); CHLORIDE,CL 108 mmol/L (98-107); SODIUM,NA 144 mmol/L (136-145)
[2021-02-18 14:20] VITALS: PULSE 68
[2021-02-18 14:21] VITALS: BP 129/83
== END 2021-02-18 14:35 ==
LOC: LL.ED 11:43
DX: R07.89 Other chest pain (principal)
CPT/HCPCS: 36415; 71046; 80048; 84484; 85025; 85652; 93005; 93010; 99284; 99285-25

== ENCOUNTER 2021-02-20 17:00 | Emergency (ER) | payer BC ==
--- NOTE | 2021-02-20 17:34 | EDM.PDOC ---
ED HPI GENERAL MEDICAL PROBLEM - General Chief Complaint: Chest Pain Stated Complaint: chest pain Time Seen by Provider: 02/20/21 17:15 Source of Information: Reports: Patient History Limitations: Reports: No Limitations - History of Present Illness INITIAL COMMENTS - FREE TEXT/NARRATIVE: Patient sent to emergency room today for further chest pain work-up after being seen by his primary care provider. She was not able to get labs. Patient was in having ongoing chest pain since last Wednesday about 1:00 or so in the afternoon. He presented to the ER that night and had a normal work-up and was discharged home. He represented here to the ER the . I saw this gentleman he had a normal EKG normal troponin. After consultation with his primary care provider and with cardiology at [facility] Dr. RANGEL. Patient states he did not have a ride and did not want to wait until the next day for a stress test. He was set up with an outpatient stress test in the next 2 weeks told to follow-up with his primary care provider. Chest pain today he rates as about a 7 out of 10 in the same location constantly does not vary with any type of movement or exertion no shortness of breath no changes from the last multiple times he was seen here in the ER. He states they did not put him on any medication when he was seen in [place]. He has no other complaints at this time. Spoke with the primary care provider today Melissa states he showed up the office about 15 minutes prior to closing discussed options with her states she had no way to work him up for chest pain. Which she did tell him that he should have stayed in receive the stress test in [place]. She states she has no history only except for the hyperlipidemia from a note back in . When reviewing notes from [facility] September 28, 2016 patient did remember that he had a exercise stress test which was normal then secondary to the on going chest pain just like this at that time. But he never received any other work-up or any other diagnosis. Duration: Day(s): Location: Reports: Chest Quality: Reports: Pressure Improves with: Reports: None Worsens with: Reports: None Associated Symptoms: Reports: Chest Pain. Denies: Diaphoresis, Headaches, Nausea/Vomiting Other Treatments CARTON FILLER: Patient does not smoke does not drink has no past medical history - Related Data Allergies Allergy/AdvReac Type Severity Reaction Status Date / Time No Known Allergies Allergy Verified 02/20/21 17:30 Home Meds: Home Meds . [No Known Home Meds] 09/28/16 [History] Past Medical History - Past Health History Medical/Surgical History: Denies Medical/Surgical History HEENT History: Reports: Impaired Vision Social & Family History - Family History Family Medical History: Unobtainable - Caffeine Use Caffeine Use: Reports: Soda, Tea ED ROS GENERAL - Review of Systems Review Of Systems: See Below Constitutional: Reports: No Symptoms HEENT: Reports: No Symptoms Respiratory: Reports: No Symptoms Cardiovascular: Reports: Chest Pain Endocrine: Reports: No Symptoms GI/Abdominal: Reports: No Symptoms : Reports: No Symptoms Musculoskeletal: Reports: No Symptoms Skin: Reports: No Symptoms Neurological: Reports: No Symptoms Psychiatric: Reports: No Symptoms Hematologic/Lymphatic: Reports: No Symptoms Immunologic: Reports: No Symptoms ED EXAM, GENERAL - Physical Exam Exam: See Below Exam Limited By: No Limitations General Appearance: Alert, WD/WN, No Apparent Distress Throat/Mouth: Normal Inspection, Normal Lips, Normal Teeth, Normal Gums, Normal Oropharynx, Normal Voice, No Airway Compromise Neck: Normal Inspection, Supple, Non-Tender, Full Range of Motion Respiratory/Chest: No Respiratory Distress, Lungs Clear, Normal Breath Sounds, No Accessory Muscle Use, Chest Non-Tender Cardiovascular: Normal Peripheral Pulses, Regular Rate, Rhythm, No Edema, No Gallop, No JVD, No Murmur, No Rub GI/Abdominal: Normal Bowel Sounds, Soft, Non-Tender, No Organomegaly, No Distention Back Exam: Normal Inspection, Full Range of Motion Extremities: Normal Inspection, Normal Range of Motion, Non-Tender Neurological: Alert, Oriented, CN II-XII Intact, Normal Cognition, Normal Gait Psychiatric: Normal Affect, Normal Mood Skin Exam: Warm, Dry, Intact, Normal Color, No Rash #1 Interpretation Rhythm: NSR [place]: Normal P-Wave: Present QRS: Normal ST-T: Normal QT: Normal Comparison: No Change Course - Vital Signs Text/Narrative:: EKG troponin patient is all prior work-up was normal CBC BMP D-dimer all were negative they were held at this time. Aspirin was also held at this time. Second the patient states he took 1 this morning. EKG normal sinus rhythm no acute findings no ST elevation or depression no changes from prior troponin was zero Patient was sent from this emergency room to [facility] for further cardiology evaluation on the patient states all they were going to do they said was new a stress test but he did not want to wait secondary to he did not have a ride home and he left before the test. He states they did get him an outpatient appointment for a stress test in 2 weeks but he states the pain has not gotten any better and he wants to know what is going on. Spoke with Dr. Mcgarry cardiology she states patient could be set up for chest pain rule out admit to the hospitalist spoke with Dr. Case he is willing to accept transfer to the [facility] for further evaluation. Patient states he wishes transfer via POV explained risk versus benefits he is still ongoing go by POV. Last Recorded V/S: Last Vital Signs Temp 36.4 C 02/20/21 17:08 Pulse 81 02/20/21 18:45 Resp 22 H 02/20/21 18:45 BP 130/83 02/20/21 18:45 Pulse Ox 81 L 02/20/21 18:45 - Orders/Labs/Meds Orders: Active Orders 24 hr Category Date Time Status EKG Documentation Completion [RC] ASDIRECTED Care 02/20/21 17:11 Active EKG 12 Lead [EK] Stat Ther 02/20/21 17:11 Ordered Labs: Laboratory Tests 02/20/21 Range/Units 17:15 Troponin I 0.000 (0.000-0.056) ng/mL Departure - Departure Time of Disposition: 18:45 Disposition: DC/Tfer to [facility] 02 Reason for Transfer *Q: Other (not cardiac cp) Condition: Good Clinical Impression: Chest pain Referrals: Monique Bray PA [Primary Care Provider] - Forms: ED Department Discharge, Interfacility Transfer [facility] Sepsis Event Note (ED) - Evaluation Sepsis Screening Result: No Definite Risk - Focused Exam Vital Signs: Vital Signs Temp Pulse Resp BP Pulse Ox 02/20/21 18:45 81 22 H 130/83 81 L 02/20/21 18:30 71 20 132/77 97 02/20/21 18:15 74 19 124/79 97 02/20/21 18:00 74 21 H 122/76 96 02/20/21 17:45 79 23 H 124/77 96 02/20/21 17:30 79 21 H 120/77 95 02/20/21 17:15 81 21 H 124/80 96 02/20/21 17:08 36.4 C 77 20 126/75 94 L - Problem List & Annotations (1) Chest pain SNOMED Code(s): 05683086 Code(s): R07.9 - CHEST PAIN, UNSPECIFIED Status: Acute Current Visit: Yes - My Orders Last 24 Hours: My Active Orders 02/20/21 17:11 EKG Documentation Completion [RC] ASDIRECTED EKG 12 Lead [EK] Stat - Assessment/Plan Last 24 Hours: My Active Orders 02/20/21 17:11 EKG Documentation Completion [RC] ASDIRECTED EKG 12 Lead [EK] Stat
[2021-02-20 19:42] VITALS: BP 116/83; PULSE 79
== END 2021-02-20 19:13 ==
LOC: LL.ED 17:00
DX: R07.9 Chest pain, unspecified (principal)
CPT/HCPCS: 36415; 84484; 93005; 93010; 99284; 99285-25

== ENCOUNTER 2021-06-14 16:43 | Emergency (ER) | payer BC ==
[2021-06-14] MEDS ORDERED: Ketorolac 60 MG/2 ML SDV IM ONE (17:00)
--- NOTE | 2021-06-14 17:05 | EDM.PDOC ---
ED HPI GENERAL MEDICAL PROBLEM - General Chief Complaint: Headache Stated Complaint: Migraine Time Seen by Provider: 06/14/21 16:50 Source of Information: Reports: Patient History Limitations: Reports: No Limitations - History of Present Illness INITIAL COMMENTS - FREE TEXT/NARRATIVE: Patient has a long standing history of migraine headache, is on topamax for prevention and still needs toradol injections 1-2 times a week. Unknown triggers. Last injection was 06/10. He states 60 mg of toradol im usually works. this headache has been unbearable for the last 2 days and would like an injection of toradol. Drove himself here. NO change in the headache, no new symptoms. It is a frontal headache like previous. no trauma - Related Data Allergies Allergy/AdvReac Type Severity Reaction Status Date / Time No Known Allergies Allergy Verified 02/20/21 17:30 Home Meds: Home Meds . [No Known Home Meds] 09/28/16 [History] Past Medical History - Past Health History Medical/Surgical History: Denies Medical/Surgical History HEENT History: Reports: Impaired Vision Neurological History: Reports: Migraines Social & Family History - Family History Family Medical History: Unobtainable - Caffeine Use Caffeine Use: Reports: Soda, Tea - Recreational Drug Use Recreational Drug Use: No Drug Use in Last 12 Months: No ED ROS GENERAL - Review of Systems Review Of Systems: See Below Constitutional: Reports: No Symptoms HEENT: Reports: No Symptoms Respiratory: Reports: No Symptoms Cardiovascular: Reports: No Symptoms Endocrine: Reports: No Symptoms GI/Abdominal: Reports: No Symptoms : Reports: No Symptoms Musculoskeletal: Reports: No Symptoms Skin: Reports: No Symptoms Neurological: Reports: Headache (typical migraine) Psychiatric: Reports: No Symptoms - Physical Exam Exam: See Below Exam Limited By: No Limitations General Appearance: Alert, WD/WN, No Apparent Distress Eye Exam: Bilateral Eye: EOMI, Normal Inspection, PERRL Ears: Normal External Exam, Normal Canal, Hearing Grossly Normal, Other (normal tm on the right, left obscured by wax) Nose: Normal Inspection, Normal Mucosa, No Blood Throat/Mouth: Normal Inspection, Normal Lips, Normal Teeth, Normal Voice Head Exam: Atraumatic Neck: Normal Inspection, Supple, Non-Tender, Full Range of Motion Respiratory/Chest: No Respiratory Distress, Lungs Clear, Normal Breath Sounds, Chest Non-Tender Cardiovascular: Normal Peripheral Pulses, Regular Rate, Rhythm, No Murmur Rectal (Males) Exam: Other Neuro Exam (Abbreviated): Alert, Oriented, CN II-XII Intact, Normal Cognition, No Motor/Sensory Deficits, Other (normal finger to nose with eyes closed, negative pronator drift, normal AMAURY. normal post closer strength in the upper extremities, normal strength in the lower extremties) Course - Orders/Labs/Meds Orders: Active Orders 24 hr Category Date Time Status Ketorolac [Toradol] Med 06/14/21 17:00 Once 60 mg IM ONETIME ONE - Re-Assessments/Exams Free Text/Narrative Re-Assessment/Exam: 06/14/21 17:10 given toradol 60 mg IM. offered return as needed. declined further medications or testing. Did have a normal head CT march of 2021 Departure - Departure Time of Disposition: 17:01 Disposition: Home, Self-Care 01 Condition: Good Clinical Impression: Migraine - Discharge Information Instructions: Migraine Headache, [id number] Additional Instructions: follow up with PCP - My Orders Last 24 Hours: My Active Orders 06/14/21 17:00 Ketorolac [Toradol] 60 mg IM ONETIME ONE - Assessment/Plan Last 24 Hours: My Active Orders 06/14/21 17:00 Ketorolac [Toradol] 60 mg IM ONETIME ONE
[2021-06-14 18:44] VITALS: PULSE 68
== END 2021-06-14 17:15 | disposition home or self-care (01) ==
LOC: LL.ED 16:43
DX: G43.909 Migraine, unspecified, not intractable, without status migrainosus (principal)
CPT/HCPCS: 96372; 99283; J1885

== ENCOUNTER 2021-10-28 19:08 | Emergency (ER) | payer BC ==
[2021-10-28 19:16] VITALS: BP 134/89; PULSE 81
[2021-10-28] MEDS ORDERED: Ketorolac 30 MG/ML SDV IM ONE (19:27)
[2021-10-28] MEDS ORDERED: Promethazine 25 MG/ML SDV IM ONE (19:28)
== END 2021-10-28 20:45 | disposition home or self-care (01) ==
LOC: LL.ED 19:08
DX: R51.9 Headache, unspecified (principal)
CPT/HCPCS: 96372; 99283; J1885; J2550

== ENCOUNTER 2022-01-18 16:38 | Emergency (ER) | payer BC ==
[2022-01-18 16:48] VITALS: BP 136/93; PULSE 68
[2022-01-18] MEDS ORDERED: Lactated Ringers 1,000 ML IV ONE (17:10)
[2022-01-18] MEDS ORDERED: Promethazine 12.5 MG in Sodium Chloride 0.9% 100 ML IV ONE (17:11)
[2022-01-18] MEDS ORDERED: Ketorolac 30 MG/ML SDV IVPUSH ONE (17:11)
[2022-01-18] MEDS ORDERED: diphenhydrAMINE 50 MG/ML SDV IVPUSH ONE (17:11)
[2022-01-18] MEDS ORDERED: Haloperidol Lactate 5 MG/ML SDV IVPUSH ONE (18:45)
== END 2022-01-18 19:05 | disposition home or self-care (01) ==
LOC: LL.ED 16:38
DX: G43.909 Migraine, unspecified, not intractable, without status migrainosus (principal)
CPT/HCPCS: 96365; 96375; 99283; 99283-25; J1200; J1885; J2550; J7120

== ENCOUNTER 2022-10-18 18:25 | Emergency (ER) | payer BC ==
[2022-10-18 18:38] VITALS: BP 107/70; PULSE 71
[2022-10-18] MEDS: Metoclopramide 10 MG/2 ML SDV IM ONE (18:55)
[2022-10-18] MEDS: Ketorolac 30 MG/ML SDV IM ONE (18:55)
[2022-10-18] MEDS: diphenhydrAMINE 25 MG Cap PO ONE (18:55)
== END 2022-10-18 19:16 | disposition home or self-care (01) ==
LOC: LL.ED 18:25
DX: G43.909 Migraine, unspecified, not intractable, without status migrainosus (principal)
CPT/HCPCS: 96372; 99283; A9270-GY; J1885; J2765

== ENCOUNTER 2022-12-18 17:51 | Emergency (ER) | payer BC ==
[2022-12-18 17:55] VITALS: BP 133/86; PULSE 78
== END 2022-12-18 19:04 | disposition home or self-care (01) ==
LOC: LL.ED 17:51
DX: S63.502A Unspecified sprain of left wrist, initial encounter (principal); W23.1XXA Caught, crushed, jammed, or pinched between stationary objects, initial encounter
CPT/HCPCS: 73100-LT; 99283

== ENCOUNTER 2023-05-16 16:37 | Emergency (ER) | payer BC ==
[2023-05-16 16:47] VITALS: BP 133/81; PULSE 72
[2023-05-16] MEDS: Ketorolac 30 MG/ML SDV IM ONE (17:12)
== END 2023-05-16 17:20 | disposition home or self-care (01) ==
LOC: LL.ED 16:37
DX: B34.9 Viral infection, unspecified (principal)
CPT/HCPCS: 96372; 99283; J1885

== ENCOUNTER 2023-07-07 17:40 | Emergency (ER) | payer BC ==
[2023-07-07 17:51] VITALS: BP 128/85; PULSE 70
[2023-07-07] MEDS: Ketorolac 30 MG/ML SDV IM ONE (18:10)
== END 2023-07-07 18:17 | disposition home or self-care (01) ==
LOC: LL.ED 17:40
DX: G43.901 Migraine, unspecified, not intractable, with status migrainosus (principal)
CPT/HCPCS: 96372; 99283; J1885

== ENCOUNTER 2023-10-21 09:19 | Emergency (ER) | payer BC ==
[2023-10-21 09:23] VITALS: BP 133/76; PULSE 79
[2023-10-21] MEDS: Ketorolac 30 MG/ML SDV IM ONE (09:41)
== END 2023-10-21 10:10 | disposition home or self-care (01) ==
LOC: LL.ED 09:19
DX: G43.909 Migraine, unspecified, not intractable, without status migrainosus (principal); Z79.899 Other long term (current) drug therapy
CPT/HCPCS: 96372; 99283; J1885

== ENCOUNTER 2024-11-30 08:23 | Emergency (ER) | payer BC ==
[2024-11-30] MEDS ORDERED: Sodium Chloride 0.9% 10 ML Syringe FLUSH PRN (08:29)
[2024-11-30 08:32] VITALS: PULSE 65
[2024-11-30 08:43] LABS: BASOPHILS ABSOLUTE AUTO 0.03 K/uL (0.00-0.20); BASOPHILS PERCENT AUTO 0.6 % (0.0-2.0); EOSINOPHILS PERCENT AUTO 1.9 % (0.0-5.0); HEMATOCRIT 44.4 % (39.0-49.0); HEMOGLOBIN 14.9 g/dL (13.1-16.8); IMMATURE GRAN ABSOLUTE AUTO 0.01 10^3/uL (0.00-0.04); IMMATURE GRAN PERCENT AUTO 0.2 % (0.0-0.4); LYMPHOCYTES ABSOLUTE AUTO 0.84 K/uL (0.50-3.50); MEAN CORPUSCULAR HEMOGLOBIN 30.5 pg (28.2-33.3); MEAN CORPUSCULAR HGB CONC 33.6 g/dL (31.7-36.0); MEAN CORPUSCULAR VOLUME 90.8 fL (84.0-98.0); MONOCYTES ABSOLUTE AUTO 0.49 K/uL (0.00-1.00); MONOCYTES PERCENT AUTO 9.3 % (2.0-14.0); NEUTROPHILS ABSOLUTE AUTO 3.79 K/uL (1.40-7.00); PLATELET COUNT,PLT 222 K/uL (150-350); RED BLOOD CELL COUNT 4.89 M/uL (4.33-5.41); RED CELL DISTRIBUTION WIDTH 12.3 % (11.2-14.1); WHITE BLOOD CELL COUNT,WBC 5.3 K/uL (4.0-10.2)
[2024-11-30 09:09] LABS: LACTIC ACID 1.9 mmol/L (0.4-2.0)
[2024-11-30 09:17] LABS: ALANINE AMINOTRANSFERASE,ALT 18 U/L (12-78); ALBUMIN 3.9 g/dL (3.4-5.0); ALKALINE PHOSPHATASE 76 IU/L (46-116); ANION GAP 8.7 meq/L (7-15); ASPARTATE AMNIOTRANSFERASE,AST 19 U/L (15-37); BILIRUBIN TOTAL 0.7 mg/dL (0.2-1.0); BLOOD UREA NITROGEN,BUN 23 mg/dL (7-18); CALCIUM 9.1 mg/dL (8.5-10.1); CARBON DIOXIDE,CO2 30.3 mmol/L (21.0-32.0); CHLORIDE,CL 106 mmol/L (98-107); CREATININE 1.05 mg/dL (0.51-1.17); EST CRCL DRUG DOSING (CG) 99.48 mL/min; GLUCOSE RANDOM 99 mg/dL (70-99); POTASSIUM,K 4.7 mmol/L (3.5-5.1); PROTEIN TOTAL,TP 7.5 g/dL (6.4-8.2); SODIUM,NA 145 mmol/L (136-145)
[2024-11-30 09:18] LABS: ESTIMATED GFR 86 mL/min (>=60)
[2024-11-30 09:20] LABS: PROTHROMBIN TIME 10.5 SEC (9.0-11.1); PTT,PARTIAL THROMBOPLSTIN TIME 24.7 SEC (23.8-34.4)
[2024-11-30 09:37] VITALS: BP 130/82
== END 2024-11-30 09:50 | disposition home or self-care (01) ==
LOC: LL.ED 08:23
DX: R07.9 Chest pain, unspecified (principal)
CPT/HCPCS: 36415; 71045; 80053; 83605; 84484; 85025; 85379; 85610; 85730; 93005; 99285

== ENCOUNTER 2024-12-23 21:09 | Emergency (ER) | payer BC ==
[2024-12-23] MEDS: Aspirin 81 MG Tab.Chew PO ONE (21:28)
[2024-12-23 21:29] LABS: BASOPHILS ABSOLUTE AUTO 0.03 K/uL (0.00-0.20); BASOPHILS PERCENT AUTO 0.4 % (0.0-2.0); EOSINOPHILS ABSOLUTE AUTO 0.15 K/uL (0.00-0.50); EOSINOPHILS PERCENT AUTO 2.2 % (0.0-5.0); HEMATOCRIT 41.9 % (39.0-49.0); HEMOGLOBIN 13.8 g/dL (13.1-16.8); IMMATURE GRAN ABSOLUTE AUTO 0.01 10^3/uL (0.00-0.04); IMMATURE GRAN PERCENT AUTO 0.1 % (0.0-0.4); LYMPHOCYTES ABSOLUTE AUTO 1.15 K/uL (0.50-3.50); LYMPHOCYTES PERCENT AUTO 16.8 % (10.0-50.0); MEAN CORPUSCULAR HEMOGLOBIN 30.5 pg (28.2-33.3); MEAN CORPUSCULAR HGB CONC 32.9 g/dL (31.7-36.0); MEAN CORPUSCULAR VOLUME 92.7 fL (84.0-98.0); MONOCYTES ABSOLUTE AUTO 0.52 K/uL (0.00-1.00); MONOCYTES PERCENT AUTO 7.6 % (2.0-14.0); NEUTROPHILS PERCENT AUTO 72.9 % (45.0-80.0); PLATELET COUNT,PLT 236 K/uL (150-350); RED BLOOD CELL COUNT 4.52 M/uL (4.33-5.41); RED CELL DISTRIBUTION WIDTH 12.4 % (11.2-14.1); WHITE BLOOD CELL COUNT,WBC 6.9 K/uL (4.0-10.2)
[2024-12-23] MEDS: Nitroglycerin 0.4 MG Tab.SL SL ONE (21:56)
[2024-12-23 22:00] LABS: ALBUMIN 3.9 g/dL (3.4-5.0); ANION GAP 8.2 meq/L (7-15); BILIRUBIN TOTAL 0.3 mg/dL (0.2-1.0); CALCIUM 8.8 mg/dL (8.5-10.1); CARBON DIOXIDE,CO2 27.8 mmol/L (21.0-32.0); CREATININE 1.14 mg/dL (0.51-1.17); EST CRCL DRUG DOSING (CG) 91.62 mL/min; MAGNESIUM 2.2 mg/dL (1.8-2.4); POTASSIUM,K 3.8 mmol/L (3.5-5.1); PROTEIN TOTAL,TP 7.1 g/dL (6.4-8.2)
[2024-12-23] MEDS: Pantoprazole 40 MG Vial IVPUSH ONE (22:11)
[2024-12-23] MEDS: Lidocaine 2% Viscous Solution 15 ML UD PO ONE (22:11)
[2024-12-23] MEDS: Aluminum Hydroxide/Magnesium Hydroxide/Simethicone Susp 30 ML Cup PO ONE (22:11)
[2024-12-23] MEDS: Sodium Chloride 0.9% 10 ML Syringe FLUSH PRN (22:12)
[2024-12-23 22:18] VITALS: PULSE 71
[2024-12-23] MEDS: Ketorolac 15 MG/ML SDV IVPUSH ONE (22:32)
[2024-12-23 22:55] VITALS: BP 134/87
== END 2024-12-23 22:47 | disposition home or self-care (01) ==
LOC: LL.ED 21:09
DX: R07.89 Other chest pain (principal)
CPT/HCPCS: 36415; 71046; 80053; 83690; 83735; 83880; 84484; 85025; 93005; 96374; 96375; 99285; A9270; J1885; J2470